=== PATIENT | female | born 2000 | race Hispanic/Latino ===

== ENCOUNTER 2024-06-27 10:27 | Emergency (ER) | payer MEDICAID, SELFPAY ==
[2024-06-27 10:28] VITALS: BP 139/86; PULSE 99; RESP 15; TEMP 36.2; O2SAT 93
[2024-06-27 10:32] VITALS: BMI 47.5
--- NOTE | 2024-06-27 10:43 | EDS_ITS ---
HPI History of Present Illness Chief Complaint: Anxiety [facility] Home Medications ?Medication ?Instructions ?Recorded ?Last Taken ?Type dexamethasone 6 mg tablet 6 mg PO DAILY #10 tabs 03/22 Unknown Rx (Decadron) Allergy/AdvReac Type Severity Reaction Status Date / Time No Known Allergies Allergy Verified 06/27/24 10:32 Social History Smoking Status: Never smoker EXAM Physical Exam Const Vital Signs: 06/27/24 10:28 06/27/24 12:27 Temperature 97.2 F L Temperature Source Temporal Pulse Rate 99 91 Respiratory Rate 15 24 H Blood Pressure 139/86 H 132/119 H Blood Pressure Mean 103 123 Pulse Ox 93 98 Oxygen Delivery Method Room Air MDM MDM MDM Narrative Medical decision making narrative: HISTORY OF PRESENT ILLNESS: Chief complaint: Multiple complaint 23-year-old female with no significant past medical history presents with multiple complaints including anxiety, concerned about panic attacks, concerned about fatigue, lightheadedness, abdominal pain, nausea vomiting diarrhea, dizziness and bleeding from her period. No syncope. Notes prior history of syncope. Never worked up for denies headache prior to syncope, abdominal pain prior to syncope, severe chest pain or shortness of breath. F denies any fever. Denies any urinary complaints. REVIEW OF SYSTEMS: Pertinent positives: As per HPI Pertinent negatives: As per HPI PHYSICAL EXAM: Nursing triage notes reviewed, Vital signs reviewed Constitutional: please see mdm HENT: MMM Eyes: Pupils equal round and reactive to light, Extraocular muscles intact Neck: No stridor, no JVD, full neck ROM Lungs: Clear to auscultation, No wheezing or rales. No increased work of breathing, no conversational dyspnea, no accessory muscle use, no nasal flaring. No respiratory distress noted Heart: Regular rate and rhythm, No murmurs, No rubs and No gallops, 2+ distal pulses (radial, femoral, posterior tibial) in all extremities Abdomen: Soft, there is no tenderness, rigidity, rebound or guarding, no obvious peritoneal signs, no palpable pulsatile abdominal masses, no auscultated abdominal bruit : No CVAT Extremities: No edema Neuro: No new focal neurological deficits, cranial nerves II through XII intact, 5/5 strength in all present extremities. Intact sensation to light touch in all present extremities, 2+ reflexes bilateral patella tendons. Skin: No rash or lesions noted MEDICAL DECISION MAKING: Chief Complaint: please see HPI External records reviewed: Reviewed allergies Factors affecting care: none Social determinants of health: none History obtained from others: none Consults: none [facility] Narrative: The patient was initially hemodynamically stable, afebrile and nontoxic- appearing I considered the following differential diagnosis: ACS, arrhythmia, anemia, electro disturbance, UTI I obtained a broad lab and imaging workup to further assess the etiology of the patient's complaint. Specifically looking to assess if there is any life or limb threatening etiology syncope ascertain ALL IMAGES (IF OBTAINED) HAVE BEEN PERSONALLY REVIEWED AND INTERPRETED BY MYSELF. EKG with normal sinus rhythm rate of 91, normal axis, no intervals, no STEMI CBC with leukocytosis suggestive of systemic inflammation, mild anemia, thrombocytopenia BMP without significant electrolyte normalities, no SORAYA LFTs without evidence hepatobiliary pathology Lipase is wnl indicating no pancreatic inflammation. High-sensitivity troponin is negative, no evidence of myocardial ischemia x 2 rules out by our high-sensitivity protocol I have personally reviewed the patient's chest x-ray. Chest x-ray is unremarkable for pulmonary edema, pneumothorax, pneumonia or focal cardiopulmonary abnormality. The synthesis of the patient's history, physical exam, labs images suggest no acute life or limb threatening etiology. The Cause of her presentation is unclear however is unlikely to be life-threatening given her stable vitals, unremarkable labs and images. The patient was instructed follow the primary care physician for further outpatient evaluation. Strict return precautions were discussed. The patient and/or family, caregivers express understanding. The patient and/or family, caregivers agrees with the plan. Shared decision making: I will have a discussion with the patient and or visitors regarding risk/benefits of further testing or admission. They will be made aware of of the risk/benefits inherent in this decision they will be given the opportunity to voice understanding. Total critical care time today provided was at least 0 minutes. This excludes separately billable procedures. Critical care time (if documented) is secondary to the patient having high probability of clinically significant/life threatening deterioration in the patient's condition which required my urgent intervention. Impression: 1. Syncope 2. Acute non-intractable nausea and vomiting Dispo: Discharge This note was generated with [employer] dictation software. It may contain incorrect words, spelling, and punctuation that were not noted in review of the chart prior to signing. Lab Data Labs: Laboratory Results - last 24 hr 06/27/24 06/27/24 06/27/24 11:13 12:22 13:50 WBC 14.2 H RBC 5.01 Hgb 10.5 L Hct 34.9 L MCV 69.7 L MCH 21.0 L MCHC 30.1 L RDW Std Deviation 40.8 RDW Coeff of Michael 16.5 H Plt Count 486 H MPV 9.4 Sodium 139 Potassium 3.6 Chloride 107 Carbon Dioxide 20.4 L Anion Gap 11 BUN 9 Creatinine 0.64 L Estim Creat Clear Calc 166.05 Est GFR (MDRD) Non-Af 127 BUN/Creatinine Ratio 13.2 Glucose 88 Calcium 9.2 Total Bilirubin 0.23 AST 17 ALT 10 Alkaline Phosphatase 85 Troponin T High Sens < 6 Troponin T Hi Sens 2 Hr < 6 Total Protein 7.7 Albumin 4.3 Globulin 3.4 Albumin/Globulin Ratio 1.2 Lipase 19 Urine Color Yellow Urine Clarity Clear Urine pH 6.0 Ur Specific [place] 1.025 Urine Protein 30 H Urine Glucose (UA) Normal Urine Ketones Negative Urine Occult Blood 50 H Urine Nitrite Negative Urine Bilirubin Negative Urine Urobilinogen Normal Ur Leukocyte Esterase 25 H Urine RBC 0 SEEN Urine WBC 0-5 SEEN Ur Squamous Epith Cells 0-5 SEEN Urine Bacteria RARE Urine Mucus 2+ Urine Test Negative Radiography Diagnostic Testing: Clinical Impression(s) from Imaging Studies Chest X-Ray 06/27/24 11:15 IMPRESSION: NEGATIVE SINGLE VIEW OF THE CHEST. Reading [facility] Plan Triage Chief Complaint: Anxiety ED Provider: Candido Erickson Dx/Rx/DC Orders Prescriptions: No Action dexamethasone [Decadron] 6 mg tablet 6 mg PO DAILY Qty: 10 0RF Primary Care Provider: Care Physician,No Primary Referrals: Care Physician,No Primary [Primary Care Provider] - Print Language: Norwegian
--- NOTE | 2024-06-27 11:01 | EKG12_ITS ---
Test Reason : SYNCOPE Blood Pressure : */* mmHG Vent. Rate : 91 BPM Atrial Rate : 91 BPM P-R Int : 144 ms QRS Dur : 92 ms QT Int : 340 ms P-R-T Axes : 37 50 19 degrees QTcB Int : 418 ms Normal sinus rhythm with sinus arrhythmia Normal ECG Confirmed by GLADYS YAÑEZ, APPLE ([id number]), make up editor DANIEL ORNELAS ([id number]) on 06/28/2024 9:14:59 AM Referred By: Confirmed By: APPLE GRAHAM MD
--- NOTE | 2024-06-27 11:15 | RAD_ITS ---
PROCEDURE: CHEST 1 VIEW (PORTABLE) 06/27/2024 REASON FOR EXAM: SYNCOPE TECHNIQUE: Frontal view of the chest. COMPARISON: None. FINDINGS: The cardiac and mediastinal contours are normal. The lungs are clear. RAD/Chest 1 View (Portable) IMPRESSION: NEGATIVE SINGLE VIEW OF THE CHEST. Reading [facility]
[2024-06-27] MEDS: Ondansetron 4 MG/2 ML Vial IV (11:19)
[2024-06-27] MEDS: 0.9% Normal Saline (1000mL) 1,000 ML 999 ML IV (11:19)
[2024-06-27 11:26] LABS: Hematocrit 34.9 % (37-47); Hemoglobin 10.5 g/dL (12.0-15.0); Mean Corp Hgb Conc 30.1 g/dL (32-36); Mean Corpuscular Volume 69.7 fL (81-99); Mean Platelet Vol. 9.4 fl (6.2-12.0); Platelet Count 486 K/mm3 (150-450); RBC Distribution Width CV 16.5 % (11.6-14.6); RBC Distribution Width SD 40.8 fl (35.1-43.9); Red Blood Count 5.01 M/mm3 (4.2-5.4); White Blood Count 14.2 K/mm3 (4.4-11.0)
[2024-06-27 11:45] LABS: Troponin T High Sensitivity < 6 ng/L (<=14)
[2024-06-27 11:46] LABS: ALB/GLOB Ratio 1.2 RATIO (0.9-2.4); AST(SGOT) 17 U/L (<=31); Alanine Aminotransfer ALT/SGPT 10 U/L (<=34); Albumin, Serum 4.3 g/dL (3.5-5.0); Alkaline Phosphatase 85 U/L (35-104); Anion Gap 11 (5-15); BUN 9 mg/dL (4-19); BUN/Creat Ratio 13.2 RATIO (10-20); Calcium,Total 9.2 mg/dL (7.6-11.0); Carbon Dioxide 20.4 mmol/L (21.0-32.0); Chloride 107 mmol/L (98-108); Creatinine, Serum 0.64 mg/dL (0.70-1.20); EST Glomerular Filtration Rate 127 (>60); Estimated Creatinine Clearance 166.05 ml/min (50-250); Globulin 3.4 g/dL (2.2-4.2); Glucose 88 mg/dL (70-99); Lipase 19 U/L (13-75); Potassium 3.6 mmol/L (3.3-5.1); Protein, Total 7.7 g/dL (5.9-8.4); Sodium Level 139 mmol/L (133-145); Total Bilirubin 0.23 mg/dL (0.00-1.30)
[2024-06-27 12:27] VITALS: BP 132/119; PULSE 91; RESP 24; O2SAT 98
[2024-06-27 12:32] LABS: Red Blood Cells-Urine 0 SEEN /hpf (0-5)
[2024-06-27 13:01] LABS: Color, Urine Yellow (Yellow); Glucose, Dipstick Normal (Normal); Ketone-Dipstick Negative (Negative); Leukocyte Esterase-Dipstick 25 /ul (Negative); Nitrite-Dipstick Negative (Negative); Occult Blood-Urine 50 /ul (Negative); Protein-Dipstick 30 mg/dl (Negative); Specific Gravity, Urine 1.025 (1.002-1.030); Urine Bilirubin Dipstick Negative (Negative); Urine Clarity Clear (Clear); Urine Urobilinogen Normal (Normal)
[2024-06-27 13:05] LABS: White Blood Cells 0-5 SEEN /hpf (0-5)
[2024-06-27 13:06] LABS: Bacteria RARE /hpf (None Seen); Mucous, Urine 2+ /hpf (<or=2+); Squamous Epithelial Cells - UA 0-5 SEEN /hpf (5-10)
[2024-06-27 13:07] LABS: Internal QC Validated? YES +Cl - CLEAR BKGD; Pregnancy, Urine Negative Negative
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
[2024-06-27 14:00] VITALS: BP 138/100; PULSE 78; RESP 22; O2SAT 98
[2024-06-27 14:11] LABS: Troponin T High Sens 2 HR < 6 ng/L (<=14)
[2024-06-27 14:15] VITALS: BP 138/100; PULSE 78; RESP 22; TEMP 36.6; O2SAT 98
== END 2024-06-27 14:29 | disposition home or self-care (01) ==
PROVIDERS: Emergency Provider Emergency Medicine; Visit Provider Emergency Medicine
DX: R55 Syncope and collapse (principal); R11.2 Nausea with vomiting, unspecified
CPT/HCPCS: 71045; 80053; 81001; 81025; 83690; 84484; 85027; 93005; 96361; 96374; 99284; A4216; J2405